=== PATIENT | female | born 1930 | race Caucasian/White ===

== ENCOUNTER 2019-10-08 22:22 | Inpatient (IN) | payer MEDICAID ==
[~2019-10-08] VITALS: Ht 152.4 cm; Wt 82.6 kg
[2019-10-09] MEDS ORDERED: ACETAMINOPHEN 325MG TABLET PO STA (00:14)
[2019-10-09] MEDS ORDERED: SODIUM CHLORIDE 0.9% 1000ML BAG (SEPSIS BOLUS) IV ONE (00:15)
[2019-10-09] MEDS ORDERED: PIPERACILLIN/TAZ 3.375G PREMIX 50 ML IV ONE (00:15)
[2019-10-09] MEDS ORDERED: VANCOMYCIN 1 G PREMIX 200 ML IV ONE (00:15)
[2019-10-09 01:22] LABS: BASOPHILS % 0.5 % (0.0-2.0); HEMATOCRIT. 34.3 % (36.0-48.0); HEMOGLOBIN. 12.1 g/dL (12.0-16.0); LYMPHOCYTES % 9.5 % (20.0-50.0); MEAN CORPUSCULAR HEMOGLOBIN 31.3 pg (28.0-32.0); MEAN CORPUSCULAR VOLUME 89.2 fL (81.0-99.0); MEAN PLATELET VOLUME 7.9 fl (7.4-10.4); MONOCYTES % 4.7 % (2.0-8.0); NEUTROPHILS % 85.3 % (40.0-76.0); PLATELET 229 x1000/uL (130-400); RED BLOOD CELL COUNT 3.85 mill/uL (4.2-5.4); RED CELL DISTRIBUTION WIDTH 12.6 % (11.6-14.6)
[2019-10-09 01:30] LABS: CHLORIDE 81 mEq/L (98-107)
[2019-10-09] MEDS ORDERED: POTASSIUM CHLORIDE 20MEQ TABLET SR PO NR (02:00)
[2019-10-09] MEDS ORDERED: ASPIRIN 325MG EC TABLET PO NR (02:00)
[2019-10-09 03:09] LABS: CLARITY URINE CLEAR (CLEAR); COLOR URINE YELLOW (YELLOW); KETONES URINE NEGATIVE (NEGATIVE); LEUKOCYTE ESTERASE URINE NEGATIVE (NEGATIVE); NITRITE URINE NEGATIVE (NEGATIVE); OCCULT BLOOD URINE NEGATIVE (NEGATIVE); PH URINE 7.5 (4.5-8.0); PROTEIN URINE 1+ (NEGATIVE); UROBILINOGEN URINE 0.2 E.U./dL (0.2-1.0)
[2019-10-09] MEDS ORDERED: ACETAMINOPHEN 325MG TABLET PO PRN (09:30)
[2019-10-09] MEDS ORDERED: ONDANSETRON HCL 4MG/2ML INJ IV PRN (09:30)
[2019-10-09] MEDS ORDERED: DEXTROSE 50% WATER 50ML SYRINGE IV PRN (09:30)
[2019-10-09] MEDS ORDERED: PIPERACILLIN/TAZOBACTAM 3.375 G in DEXT 5% WATER 100 ML IV SCH (09:30)
[2019-10-09] MEDS: SODIUM CHLORIDE 0.9% 1,000 ML IV SCH ×2 (09:50→22:50)
[2019-10-09] MEDS ORDERED: PIPERACILLIN/TAZ 2.25G PREMIX 50 ML IV ONE (10:00)
[2019-10-09] MEDS ORDERED: ENOXAPARIN 40MG/0.4ML SYR SUBCUT SCH (11:00)
[2019-10-09] MEDS ORDERED: VANCOMYCIN 1 G PREMIX 200 ML IV SCH (11:00)
[2019-10-09] MEDS: BLOOD SUGAR DIAGNOSTIC STRIP TEST SCH ×3 (12:56→20:29)
[2019-10-09] MEDS: INSULIN LISPRO 100 UNITS/ML SUBCUT SCH ×3 (12:59→20:29)
[2019-10-09 15:01] LABS: CHLORIDE 90 mEq/L (98-107)
[2019-10-09 16:00] VITALS: BP 138/79
[2019-10-09 16:11] VITALS: BP 138/80
[2019-10-09] MEDS ORDERED: ATEN50TA PO (16:18)
[2019-10-09] MEDS ORDERED: MECL-159 PO (16:18)
[2019-10-09] MEDS ORDERED: LISI-604 PO (16:18)
[2019-10-09] MEDS ORDERED: ATOR20TA65 PO (16:18)
[2019-10-09] MEDS ORDERED: CLOP75TA33 PO (16:18)
[2019-10-09 20:27] VITALS: BP 121/52
[2019-10-09] MEDS ORDERED: CEFEPIME 1,000 MG in DEXTROSE 5% WATER 50 ML IV SCH (23:30)
[2019-10-10] VITALS: BP 129/81
[2019-10-10 04:00] VITALS: BP 103/53
[2019-10-10] MEDS: BLOOD SUGAR DIAGNOSTIC STRIP TEST SCH ×3 (06:51→17:26)
[2019-10-10] MEDS: INSULIN LISPRO 100 UNITS/ML SUBCUT SCH ×3 (06:51→17:40)
[2019-10-10 08:00] VITALS: BP 152/66
[2019-10-10 09:40] LABS: SODIUM URINE RANDOM 50 mEq/L
[2019-10-10] MEDS ORDERED: ENOXAPARIN 40MG/0.4ML SYR SUBCUT SCH (10:00)
[2019-10-10 12:00] VITALS: BP 142/61
[2019-10-10] MEDS ORDERED: VANCOMYCIN 1 G PREMIX 200 ML IV SCH ×2 (12:00→14:00)
[2019-10-10] MEDS: SODIUM CHLORIDE 0.9% 1,000 ML IV SCH (12:54)
[2019-10-10 13:06] LABS: BASOPHILS % 0.5 % (0.0-2.0); EOSINOPHILS % 0.6 % (0.0-5.0); HEMOGLOBIN. 12.1 g/dL (12.0-16.0); LYMPHOCYTES % 8.7 % (20.0-50.0); MEAN CORPUSCULAR HEMOGLOBIN 30.8 pg (28.0-32.0); MEAN CORPUSCULAR VOLUME 91.9 fL (81.0-99.0); MEAN PLATELET VOLUME 7.9 fl (7.4-10.4); MONOCYTES % 6.2 % (2.0-8.0); PLATELET 224 x1000/uL (130-400); RED BLOOD CELL COUNT 3.92 mill/uL (4.2-5.4); RED CELL DISTRIBUTION WIDTH 13.3 % (11.6-14.6)
[2019-10-10 14:22] LABS: PHOSPHORUS 3.2 mg/dL (2.5-4.9)
[2019-10-10 16:31] VITALS: BP 142/61
== END 2019-10-10 18:00 | disposition short-term general hospital (02) | DRG 720 ==
LOC: ER 22:22 → 7WST 10-09 02:07 → EDBEDREQTM 10-09 02:15 → EDBEDREQ 10-09 02:15 → EDBEDREQSVC 10-09 02:15 → ENRESERV 10-09 13:20 → ER 10-09 13:41 → 5WST 10-09 21:37
PROVIDERS: ADMIT Internal Medicine; ATTEND Internal Medicine
DX: A41.9 Sepsis, unspecified organism (principal); I10 Essential (primary) hypertension; E11.9 Type 2 diabetes mellitus without complications; E78.00 Pure hypercholesterolemia, unspecified; E78.5 Hyperlipidemia, unspecified; E44.1 Mild protein-calorie malnutrition; E87.1 Hypo-osmolality and hyponatremia; E87.6 Hypokalemia; E87.8 Other disorders of electrolyte and fluid balance, not elsewhere classified; G90.8 Other disorders of autonomic nervous system; Z20.828 Contact with and (suspected) exposure to other viral communicable diseases; N13.8 Other obstructive and reflux uropathy; E86.1 Hypovolemia; Z83.3 Family history of diabetes mellitus; Z82.49 Family history of ischemic heart disease and other diseases of the circulatory system; Z68.35 Body mass index [BMI] 35.0-35.9, adult
CPT/HCPCS: 36415; 71045; 76770; 80048; 80053; 81003; 82962; 83605; 83735; 83935; 84100; 84145; 84300; 84484; 85025; 87635; 93005; 99291; J0692; J1650; J1815; J2543; J3370; J7030; J7060